=== PATIENT | male | born 1960 | race African-American/Black ===

== ENCOUNTER 2023-02-11 08:25 | Day surgery (SDC) | payer MEDICARE ==
[2023-02-07 11:41] VITALS: BMI 43.1
[2023-02-11 08:57] LABS: Prothrombin Time 13.3 sec (12.0-14.7)
[2023-02-11 11:13] VITALS: BP 113/87; TEMP 97.7
== END 2023-02-11 12:10 | disposition home or self-care (01) ==
LOC: CT 08:25
PROVIDERS: ATTEND Internal Medicine Hematology & Oncology
PROC: 07DR3ZX Extraction of Iliac Bone Marrow, Percutaneous Approach, Diagnostic (ICD-10-PCS; principal; 2023-02-11)
DX: C90.00 Multiple myeloma not having achieved remission (principal); I10 Essential (primary) hypertension; E78.5 Hyperlipidemia, unspecified; K21.9 Gastro-esophageal reflux disease without esophagitis; M10.9 Gout, unspecified; G89.29 Other chronic pain; Z87.891 Personal history of nicotine dependence; Z79.899 Other long term (current) drug therapy
CPT/HCPCS: 20225; 77012; 85097; 85610; 85730; 88184; 88185; 88237; 88264; 88280; 88305; 88311; 88313; 88342; 88365

== ENCOUNTER 2023-02-13 08:45 | Outpatient (CLI) | payer MEDICARE | END 2023-02-13 08:46 | disposition home or self-care (01) | LOC: PET 08:45 | PROVIDERS: ATTEND Internal Medicine Hematology & Oncology | DX: C90.00 Multiple myeloma not having achieved remission (principal) | CPT/HCPCS: 78816; A9552 ==

== ENCOUNTER 2024-04-12 11:56 | Outpatient (CLI) | payer OTHER | END 2024-04-12 11:57 | disposition home or self-care (01) | LOC: SCSRAD 11:56 | PROVIDERS: ATTEND Family Medicine | DX: J18.9 Pneumonia, unspecified organism (principal); R91.8 Other nonspecific abnormal finding of lung field; R05.1 Acute cough | CPT/HCPCS: 71046; 87635 ==

== ENCOUNTER 2024-07-13 10:51 | Day surgery (SDC) | payer OTHER ==
[2024-07-08 08:41] VITALS: BMI 41.8
[2024-07-13] MEDS ORDERED: fentaNYL PF 100 MCG/2 ML SYRINGE ONE (10:57)
[2024-07-13] MEDS ORDERED: Dexamethasone 4 mg/ml Vial ONE (10:57)
[2024-07-13] MEDS ORDERED: Ondansetron PF 4 MG/2 ML Vial ONE (10:57)
[2024-07-13] MEDS ORDERED: PROPOFOL 40 ML ONE (10:57)
[2024-07-13] MEDS ORDERED: CEFAZOLIN 2 GM VIAL ONE (11:14)
[2024-07-13] MEDS ORDERED: Sodium Chloride 0.9% 100 ML ONE (11:14)
[2024-07-13] MEDS ORDERED: Glycopyrrolate 0.2 MG/ML 5 ML SYRINGE ONE (11:26)
[2024-07-13] MEDS ORDERED: Ketorolac Tromethamine 30 MG (1 mL) VIAL ONE (11:33)
[2024-07-13] MEDS ORDERED: Lidocaine 1% PF 5 ML VIAL ONE (11:33)
== END 2024-07-13 14:07 | disposition home or self-care (01) ==
LOC: SDC 10:51
PROVIDERS: ATTEND Orthopaedic Surgery Hand Surgery
PROC: 0LB70ZZ Excision of Right Hand Tendon, Open Approach (ICD-10-PCS; principal; 2024-07-13)
DX: M67.441 Ganglion, right hand (principal); I10 Essential (primary) hypertension; F32.A Depression, unspecified; G43.909 Migraine, unspecified, not intractable, without status migrainosus; J45.909 Unspecified asthma, uncomplicated; G47.33 Obstructive sleep apnea (adult) (pediatric); F41.9 Anxiety disorder, unspecified; Z86.16 Personal history of COVID-19; Z79.51 Long term (current) use of inhaled steroids; Z87.891 Personal history of nicotine dependence; Z79.899 Other long term (current) drug therapy
CPT/HCPCS: 26160; A6223; J1100; J1885; J2405; J2704; 88304

== ENCOUNTER 2024-10-06 09:47 | Outpatient (CLI) | payer OTHER | END 2024-10-06 09:48 | disposition home or self-care (01) | LOC: SCSRAD 09:47 | DX: R06.00 Dyspnea, unspecified (principal) | CPT/HCPCS: 71046; 87635 ==